=== PATIENT | female | born 1960 | race Caucasian/White ===

== ENCOUNTER 2017-04-09 21:09 | Emergency (ER) | payer MEDICAID ==
[~2017-04-09] VITALS: Ht 149.9 cm; Wt 68.0 kg
[2017-04-09 22:25] LABS: BASOPHIL % 0.3 % (0-2); PLATELET COUNT 356 x10^3mcL (130-400)
[2017-04-09 22:30] LABS: RED CELL DISTRIBUTION WIDTH 16.8 % (11.5-14.5)
[2017-04-09 23:41] VITALS: BP 166/90
== END 2017-04-09 23:41 | disposition home or self-care (01) ==
LOC: ED 21:09
PROVIDERS: Emergency Medicine
DX: J11.1 Influenza due to unidentified influenza virus with other respiratory manifestations (principal); I10 Essential (primary) hypertension; Z86.73 Personal history of transient ischemic attack (TIA), and cerebral infarction without residual deficits; Z88.0 Allergy status to penicillin
CPT/HCPCS: 87804; J1885; J7030